=== PATIENT | female | born 1960 | race Caucasian/White ===

== ENCOUNTER 2021-04-15 13:19 | Observation (INO) | payer OTHER, SELFPAY ==
[2021-04-15] VITALS (12 sets, daily range): BP systolic 116–163; BP diastolic 69–91; PULSE 68–86; RESP 16–24; TEMP 37.3–37.7; O2SAT 94–99; BMI 28.6
[2021-04-15 13:40] LABS: Bacteria Urine None Seen; RBC Urine None Seen (0-5/HPF)
[2021-04-15 13:49] LABS: Add Manual Diff / Slide Review NO; Basophils Absolute Auto 0 /uL (0-100); Basophils Percent Auto 0.2 % (0-2); Eosinophils Absolute Auto 0 /uL (0-450); Hematocrit 41.8 % (36-46); Hemoglobin 14.1 g/dL (12.0-16.0); Lymphocytes Absolute Auto 900 /uL (1100-4500); Lymphocytes Percent Auto 5.4 % (25-40); Mean Corpuscular HGB Conc 33.8 % (30-36); Mean Corpuscular Hemoglobin 28.3 PG (26-34); Mean Corpuscular Volume 83.8 fL (80-100); Monocytes Absolute Auto 1100 /uL (0-900); Monocytes Percent Auto 6.8 % (3-14); Neutrophils Absolute Auto 14100 /uL (1500-7000); Neutrophils Percent Auto 87.6 % (50-75); Platelet Count 298 X10^3/uL (150-400); Red Blood Cell Count 4.99 X10^6/uL (4.0-5.2); Red Cell Distribution Width 13.6 % (11.6-14.8); White Blood Cell Count 16.1 X10^3/uL (4.5-11.0)
[2021-04-15 13:57] LABS: Culture Indicated Urine Cult Not Indicated; Mucus Urine 2+ (Negative); Squamous Epithelial Cell Urine 0-1 /HPF (0-5/HPF); WBC Urine 1-5/HPF (0-5/HPF)
--- NOTE | 2021-04-15 14:00 | DI.US.S_ITS ---
PROCEDURE: US ABDOMEN LIMITED INDICATIONS: EPIGASTRIC PAIN TECHNIQUE: Real-time focused scanning was performed of the abdomen, with image documentation. COMPARISON: None. FINDINGS: Liver length of 15.3 centimeter. normal echotexture without focal mass. Gallbladder is distended containing layering sludge and stones including a 1.1 centimeter stone in the gallbladder neck. The gallbladder wall is thickened up to 6-7 millimeter. There is surrounding pericholecystic fluid and the sonographic Espinoza sign is positive. The common bile duct measures 4.9 centimeter in diameter, within normal limits. Visualized portions of the pancreas are unremarkable. IMPRESSION: Findings consistent with acute calculus cholecystitis. Dictated by: Edin Bloom M.D. on 04/15/2021 at 14:23 Approved by: Edin Bloom M.D. on 04/15/2021 at 14:25
[2021-04-15 14:01] LABS: Alanine Aminotransferase 153 IU/L (<35); Albumin 4.6 g/dL (3.5-5.0); Albumin Globulin Ratio 1.2 (1.0-2.8); Alkaline Phosphatase 101 U/L (38-126); Aspartate Aminotransferase 78 IU/L (14-36); BUN Creatinine Ratio 23.5 (6-22); Bilirubin Total 1.2 mg/dL (0.2-1.3); Blood Urea Nitrogen 16 mg/dL (7-17); Calcium 9.5 mg/dL (8.4-10.2); Carbon Dioxide 26 mmol/L (22-32); Chloride 100 mmol/L (98-107); Estimated Glomerular Filt Rate > 60.0 mL/min (>60); Globulin 3.7 g/dL (1.7-4.1); Glucose 124 mg/dL (70-100); HEMOLYSIS < 15 (0-50); Lipase 92 U/L (23-300); Potassium 3.7 mmol/L (3.4-5.1); Sodium 137 mmol/L (137-145); Total Protein 8.3 g/dL (6.3-8.2)
[2021-04-15] MEDS: SODIUM CHLORIDE 0.9% 1,000 ML 1000 ML IV (14:13)
[2021-04-15] MEDS: MAG HYDROX/ALUMINUM/SIMETH SUS 20 ML, LIDOCAINE VISCOUS 2% 15 ML PO (14:13)
[2021-04-15] MEDS: MORPHINE 2 MG/ML INJ 4 MG IV (14:14)
--- NOTE | 2021-04-15 14:17 | ED_ITS ---
HPI - Abdominal Pain <Kait Washington PA-C - Last Filed: 04/15/21 19:19> General Chief Complaint: Abdominal Pain Stated Complaint: Abd pain- upper RT/Mid Time Seen by Provider: 04/15/21 13:23 Source: patient Mode of arrival: Family Vehicle Limitations: no limitations History of Present Illness HPI narrative: 61-year-old female with no significant past medical problems presents to the ED with abdominal pain for 2 days. Patient endorses onset of epigastric pain last night after eating food. Endorses nausea, 2 episodes of vomiting last night. In the ED patient endorses 9/10 pain, nausea. Endorses subjective fever. Denies chest pain, shortness of breath, dysuria, flank pain, lightheadedness, syncope, dizziness. Denies diarrhea, constipation, hematochezia, melena, hematemesis. Endorses prior episodes of similar pain that was not as severe and resolved spontaneously. Patient endorses taking 's omeprazole last night with no relief. Related Data Allergies Allergy/AdvReac Type Severity Reaction Status Date / Time No Known Drug Allergies Allergy Verified 04/15/21 13:36 Review of Systems <Kait Washington PA-C - Last Filed: 04/15/21 19:19> Constitutional Constitutional: Denies chills, Reports fever(s), Denies frequent falls, Denies lethargy and Denies weakness Eyes Eyes: Reports system reviewed and no additional complaints, except as documented ENT Ears, Nose, Mouth, and Throat: Denies dizziness Cardiovascular Cardiovascular: Denies chest pain, Denies irregular heart rhythm, Denies lightheadedness, Denies palpitations, Denies dyspnea, Denies dyspnea on exertion and Denies orthopnea Respiratory Respiratory: Denies cough, Denies dyspnea, Denies dyspnea on exertion and Denies wheezing Gastrointestinal Gastrointestinal: Reports abdominal pain, Denies change in bowel habits, Reports dyspepsia, Denies diarrhea, Reports nausea and Reports vomiting Genitourinary Genitourinary: Denies dysuria Musculoskeletal Musculoskeletal: Denies numbness and Denies tingling Integumentary/Breasts Skin/Breast: Denies pruritus, Denies erythema, Denies rash and Denies wounds Neurologic Neurologic: Denies behavioral changes, Denies confusion, Denies dizziness, Denies frequent falls, Denies numbness, Denies tingling and Denies weakness Psychiatric Psychiatric: Denies behavioral changes and Denies confusion Endocrine Endocrine: Denies palpitations Allergic/Immunologic Allergic/Immunologic: Denies wheezing Patient History <Kait Washington PA-C - Last Filed: 04/15/21 19:19> Social History household members: spouse and children Smoking Status: Never smoker Smoking Status: Never smoker alcohol intake frequency: a few times a month Substance Use Type: does not use Exam <Kait Washington PA-C - Last Filed: 04/15/21 19:19> Initial Vital Signs Initial Vital Signs: Vital Signs Pulse Rate 86 04/15/21 13:30 Respiratory Rate 24 04/15/21 13:30 Blood Pressure 163/91 H 04/15/21 13:30 Pulse Oximetry 98 04/15/21 13:30 Const General: cooperative Eyes General: appearance normal, both eyes and all related structures Eyelids: eyelids normal Conjunctivae: conjunctivae normal Sclera: sclerae normal Pupils: PERRL EOM: EOM intact bilaterally Neck Neck: normal visual inspection, trachea midline, No lymphadenopathy, No midline deformity and No JVD Lymphatic: No lymphedema Chest Chest: normal inspection of the chest Resp Effort & Inspection: normal respiratory effort, able to speak in complete sentences, no respiratory distress and no use of accessory muscles Auscultation: clear to auscultation bilaterally, no rales, no rhonchi and no wheezes Cardio Rate: regular rate Rhythm: regular rhythm Heart Sounds: no click, no gallops, no murmurs and no rubs Pulses: normal peripheral pulses GI Inspection: normal to inspection and non-distended Palpation: soft, no hepatosplenomegaly, No guarding, No pulsatile mass and No tender Auscultation: normal bowel sounds Other: Tenderness to palpation in the epigastric and RUQ regions. No guarding, rebound. No CVA tenderness. General: No CVA tenderness Back/Spine/Pelvis Back: No CVA tenderness Cervical Spine: cervical ROM normal and No pain with cervical ROM Thoracic/Lumbar Spine: thoracic and lumbar spine normal to inspection Skin General: no rashes or lesions noted, No jaundice and No petechiae Neuro General: patient alert, patient oriented x3, gait normal and no focal motor deficits Speech: speech normal Extrem General: full ROM, no clubbing, cyanosis or edema, no pedal edema and no calf tenderness Psych Appearance: well kempt Mental Status: mental status grossly normal Attitude: cooperative Thought Content: normal and suicidality Judgment: judgment good <Olga Lidia Swartz DO - Last Filed: 04/16/21 07:36> Initial Vital Signs Initial Vital Signs: Vital Signs Pulse Rate 86 04/15/21 13:30 Respiratory Rate 24 04/15/21 13:30 Blood Pressure 163/91 H 04/15/21 13:30 Pulse Oximetry 98 04/15/21 13:30 Course <Kait Washington PA-C - Last Filed: 04/15/21 19:19> Course Course Narrative: Ultrasound significant for acute calculous cholecystitis. Patient accepted by surgery, Dr. Morel. discussed plan and findings with patient. Orders Ordered: Acetaminophen (Acetaminophen 325 Mg Tablet) 650 mg PO Q6HR PRN PRN Reason: Fever/Mild Pain (1-3) Hydrocodone Bitart/Acetaminophen (Hydrocodone/Acet 5/325 Tablet) 2 tab PO Q4HR PRN PRN Reason: Pain, Severe (7-10) Famotidine (Famotidine 20 Mg/2 Ml Vial) 20 mg IV NOW [facility] Last Admin: 04/15/21 14:20 Dose: 20 mg Documented by: ANETTE Hydromorphone HCl (Hydromorphone 1 Mg Inj) 1 mg IV Q6H PRN PRN Reason: Pain, Severe (7-10) Last Admin: 04/15/21 17:22 Dose: 1 mg Documented by: ANETTE Lactated Ringer's (Lactated Ringers) 1,000 mls @ 100 mls/hr IV CONT [facility] Last Admin: 04/15/21 17:06 Dose: 100 mls/hr Documented by: ANETTE Piperacillin Sod/Tazobactam (Sod 3.375 gm/ Sodium Chloride) 100 mls @ 25 mls/hr IV Q8H [facility] Last Admin: 04/16/21 04:54 Dose: 25 mls/hr Documented by: Infusion: 04/16/21 01:10 Dose: 0 mls/hr Documented by: Admin: 04/15/21 20:59 Dose: 25 mls/hr Documented by: DUSTIN Ketorolac Tromethamine (Ketorolac 30 Mg/Ml Vial) 30 mg IV Q6HR PRN PRN Reason: Pain, Moderate (4-6) Stop: 04/20/21 16:29 Last Admin: 04/15/21 21:40 Dose: 30 mg Documented by: DUSTIN Naloxone HCl (Naloxone 0.4 Mg/Ml Vial) 0.2 mg IV Q2MIN PRN PRN Reason: Opiate Reversal Discontinued Medications Al Hydrox/Mg Hydrox/Simethicone 20 ml/ Lidocaine HCl 15 ml 0 ml PO NOW ONE Stop: 04/15/21 13:58 Last Admin: 04/15/21 14:13 Dose: 35 ml Documented by: ANETTE Sodium Chloride (Normal Saline 0.9%) 1,000 mls @ 1,000 mls/hr IV BOLUS ONE Stop: 04/15/21 14:56 Last Infusion: 04/15/21 15:15 Dose: 0 mls/hr Documented by: Admin: 04/15/21 14:13 Dose: 1,000 mls/hr Documented by: ANETTE Ondansetron HCl 4 mg/ Sodium (Chloride) 52 mls @ 208 mls/hr IV NOW ONE Stop: 04/15/21 14:00 Last Admin: 04/15/21 19:59 Dose: Not Given Documented by: DUSTIN Piperacillin Sod/Tazobactam (Sod 3.375 gm/ Sodium Chloride) 100 mls @ 25 mls/hr IV Q8H [facility] Last Admin: 04/15/21 19:59 Dose: Not Given Documented by: DUSTIN Piperacillin Sod/Tazobactam (Sod 4.5 gm/ Sodium Chloride) 100 mls @ 200 mls/hr IV NOW ONE Stop: 04/15/21 17:14 Last Infusion: 04/15/21 17:50 Dose: 0 mls/hr Documented by: Admin: 04/15/21 17:04 Dose: 200 mls/hr Documented by: ANETTE Morphine Sulfate (Morphine 2 Mg/Ml Inj) 4 mg IV NOW ONE Stop: 04/15/21 14:00 Last Admin: 04/15/21 14:14 Dose: 4 mg Documented by: ANETTE Ondansetron HCl (Ondansetron 4 Mg/2 Ml Inj) 4 mg IV NOW ONE Stop: 04/15/21 14:22 Last Admin: 04/15/21 14:27 Dose: 4 mg Documented by: ANETTE Ondansetron HCl (Ondansetron 4 Mg/2 Ml Inj) 4 mg IV NOW ONE Stop: 04/15/21 17:14 Last Admin: 04/15/21 17:21 Dose: 4 mg Documented by: ANETTE Vital Signs Vital signs: Vital Signs - 8 hr 04/15/21 13:30 04/15/21 13:33 04/15/21 14:00 Temperature 99.1 F Pulse Rate 86 83 73 Respiratory Rate 24 18 21 Blood Pressure 163/91 H 163/91 H Pulse Oximetry 98 99 97 04/15/21 14:33 04/15/21 15:00 04/15/21 15:30 Temperature Pulse Rate 74 70 68 Respiratory Rate 21 19 16 Blood Pressure 159/77 H Pulse Oximetry 98 98 98 04/15/21 15:40 04/15/21 16:00 04/15/21 16:26 Temperature Pulse Rate 73 71 Respiratory Rate 21 20 Blood Pressure 159/77 H 157/74 H Pulse Oximetry 98 98 98 04/15/21 16:30 Temperature Pulse Rate 72 Respiratory Rate 19 Blood Pressure 147/74 H Pulse Oximetry 98 <Olga Lidia Swartz, - Last Filed: 04/16/21 07:36> Orders Ordered: Acetaminophen (Acetaminophen 325 Mg Tablet) 650 mg PO Q6HR PRN PRN Reason: Fever/Mild Pain (1-3) Hydrocodone Bitart/Acetaminophen (Hydrocodone/Acet 5/325 Tablet) 2 tab PO Q4HR PRN PRN Reason: Pain, Severe (7-10) Famotidine (Famotidine 20 Mg/2 Ml Vial) 20 mg IV NOW [facility] Last Admin: 04/15/21 14:20 Dose: 20 mg Documented by: ANETTE Hydromorphone HCl (Hydromorphone 1 Mg Inj) 1 mg IV Q6H PRN PRN Reason: Pain, Severe (7-10) Last Admin: 04/15/21 17:22 Dose: 1 mg Documented by: ANETTE Lactated Ringer's (Lactated Ringers) 1,000 mls @ 100 mls/hr IV CONT [facility] Last Admin: 04/15/21 17:06 Dose: 100 mls/hr Documented by: ANETTE Piperacillin Sod/Tazobactam (Sod 3.375 gm/ Sodium Chloride) 100 mls @ 25 mls/hr IV Q8H [facility] Last Admin: 04/16/21 04:54 Dose: 25 mls/hr Documented by: Infusion: 04/16/21 01:10 Dose: 0 mls/hr Documented by: Admin: 04/15/21 20:59 Dose: 25 mls/hr Documented by: DUSTIN Ketorolac Tromethamine (Ketorolac 30 Mg/Ml Vial) 30 mg IV Q6HR PRN PRN Reason: Pain, Moderate (4-6) Stop: 04/20/21 16:29 Last Admin: 04/15/21 21:40 Dose: 30 mg Documented by: DUSTIN Naloxone HCl (Naloxone 0.4 Mg/Ml Vial) 0.2 mg IV Q2MIN PRN PRN Reason: Opiate Reversal Discontinued Medications Al Hydrox/Mg Hydrox/Simethicone 20 ml/ Lidocaine HCl 15 ml 0 ml PO NOW ONE Stop: 04/15/21 13:58 Last Admin: 04/15/21 14:13 Dose: 35 ml Documented by: ANETTE Sodium Chloride (Normal Saline 0.9%) 1,000 mls @ 1,000 mls/hr IV BOLUS ONE Stop: 04/15/21 14:56 Last Infusion: 04/15/21 15:15 Dose: 0 mls/hr Documented by: Admin: 04/15/21 14:13 Dose: 1,000 mls/hr Documented by: ANETTE Ondansetron HCl 4 mg/ Sodium (Chloride) 52 mls @ 208 mls/hr IV NOW ONE Stop: 04/15/21 14:00 Last Admin: 04/15/21 19:59 Dose: Not Given Documented by: DUSTIN Piperacillin Sod/Tazobactam (Sod 3.375 gm/ Sodium Chloride) 100 mls @ 25 mls/hr IV Q8H [facility] Last Admin: 04/15/21 19:59 Dose: Not Given Documented by: DUSTIN Piperacillin Sod/Tazobactam (Sod 4.5 gm/ Sodium Chloride) 100 mls @ 200 mls/hr IV NOW ONE Stop: 04/15/21 17:14 Last Infusion: 04/15/21 17:50 Dose: 0 mls/hr Documented by: Admin: 04/15/21 17:04 Dose: 200 mls/hr Documented by: ANETTE Morphine Sulfate (Morphine 2 Mg/Ml Inj) 4 mg IV NOW ONE Stop: 04/15/21 14:00 Last Admin: 04/15/21 14:14 Dose: 4 mg Documented by: ANETTE Ondansetron HCl (Ondansetron 4 Mg/2 Ml Inj) 4 mg IV NOW ONE Stop: 04/15/21 14:22 Last Admin: 04/15/21 14:27 Dose: 4 mg Documented by: ANETTE Ondansetron HCl (Ondansetron 4 Mg/2 Ml Inj) 4 mg IV NOW ONE Stop: 04/15/21 17:14 Last Admin: 04/15/21 17:21 Dose: 4 mg Documented by: ANETTE Vital Signs Vital signs: Vital Signs - 8 hr 04/15/21 13:30 04/15/21 13:33 04/15/21 14:00 Temperature 99.1 F Pulse Rate 86 83 73 Respiratory Rate 24 18 21 Blood Pressure 163/91 H 163/91 H Pulse Oximetry 98 99 97 04/15/21 14:33 04/15/21 15:00 04/15/21 15:30 Temperature Pulse Rate 74 70 68 Respiratory Rate 21 19 16 Blood Pressure 159/77 H Pulse Oximetry 98 98 98 04/15/21 15:40 04/15/21 16:00 04/15/21 16:26 Temperature Pulse Rate 73 71 Respiratory Rate 21 20 Blood Pressure 159/77 H 157/74 H Pulse Oximetry 98 98 98 04/15/21 16:30 Temperature Pulse Rate 72 Respiratory Rate 19 Blood Pressure 147/74 H Pulse Oximetry 98 MDM - Abdominal Pain <Kait Washington PA-C - Last Filed: 04/15/21 19:19> Medical Records Attestation: I reviewed the patient's medical records. Lab Data Lab results narrative: WBC elevated with neutrophil predominance. Result diagrams: 04/15/21 13:34 04/15/21 13:34 Labs: Lab Results 04/15/21 04/15/21 04/15/21 Range/Units 13:34 13:34 13:34 WBC 16.1 H (4.5-11.0) X10^3/uL RBC 4.99 (4.0-5.2) X10^6/uL Hgb 14.1 (12.0-16.0) g/dL Hct 41.8 (36-46) % MCV 83.8 (80-100) fL MCH 28.3 (26-34) PG MCHC 33.8 (30-36) % RDW 13.6 (11.6-14.8) % Plt Count 298 (150-400) X10^3/uL Neut % (Auto) 87.6 H (50-75) % Lymph % (Auto) 5.4 L (25-40) % [place] % (Auto) 6.8 (3-14) % Eos % (Auto) 0.0 L (2-4) % Baso % (Auto) 0.2 (0-2) % Neut # (Auto) 58398 H (6501-7582) /uL Lymph # (Auto) 900 L (0048-5442) /uL [place] # (Auto) 1100 H (0-900) /uL Eos # (Auto) 0 (0-450) /uL Baso # (Auto) 0 (0-100) /uL Sodium 137 (137-145) mmol/L Potassium 3.7 (3.4-5.1) mmol/L Chloride 100 (98-107) mmol/L Carbon Dioxide 26 (22-32) mmol/L BUN 16 (7-17) mg/dL Creatinine 0.68 (0.52-1.04) mg/dL Estimated GFR > 60.0 (>60) mL/min BUN/Creatinine Ratio 23.5 H (6-22) Glucose 124 H (70-100) mg/dL Calcium 9.5 (8.4-10.2) mg/dL Total Bilirubin 1.2 (0.2-1.3) mg/dL AST 78 H (14-36) IU/L ALT 153 H (<35) IU/L Alkaline Phosphatase 101 (38-126) U/L Total Creatine Kinase 89 (30-135) U/L CK-MB (CK-2) TNP CK-MB (CK-2) Rel Index TNP Troponin I < 0.012 (0.01-0.034) ng/mL Total Protein 8.3 H (6.3-8.2) g/dL Albumin 4.6 (3.5-5.0) g/dL Globulin 3.7 (1.7-4.1) g/dL Albumin/Globulin Ratio 1.2 (1.0-2.8) Lipase 92 (23-300) U/L Urine RBC (0-5/HPF) Urine WBC (0-5/HPF) Ur Squamous Epith Cells (0-5/HPF) Urine Bacteria (None) Urine Mucus (Negative) Ur Culture Indicated? 04/15/21 Range/Units 13:35 WBC (4.5-11.0) X10^3/uL RBC (4.0-5.2) X10^6/uL Hgb (12.0-16.0) g/dL Hct (36-46) % MCV (80-100) fL MCH (26-34) PG MCHC (30-36) % RDW (11.6-14.8) % Plt Count (150-400) X10^3/uL Neut % (Auto) (50-75) % Lymph % (Auto) (25-40) % [place] % (Auto) (3-14) % Eos % (Auto) (2-4) % Baso % (Auto) (0-2) % Neut # (Auto) (5459-6661) /uL Lymph # (Auto) (7591-2671) /uL [place] # (Auto) (0-900) /uL Eos # (Auto) (0-450) /uL Baso # (Auto) (0-100) /uL Sodium (137-145) mmol/L Potassium (3.4-5.1) mmol/L Chloride (98-107) mmol/L Carbon Dioxide (22-32) mmol/L BUN (7-17) mg/dL Creatinine (0.52-1.04) mg/dL Estimated GFR (>60) mL/min BUN/Creatinine Ratio (6-22) Glucose (70-100) mg/dL Calcium (8.4-10.2) mg/dL Total Bilirubin (0.2-1.3) mg/dL AST (14-36) IU/L ALT (<35) IU/L Alkaline Phosphatase (38-126) U/L Total Creatine Kinase (30-135) U/L CK-MB (CK-2) CK-MB (CK-2) Rel Index Troponin I (0.01-0.034) ng/mL Total Protein (6.3-8.2) g/dL Albumin (3.5-5.0) g/dL Globulin (1.7-4.1) g/dL Albumin/Globulin Ratio (1.0-2.8) Lipase (23-300) U/L Urine RBC None seen (0-5/HPF) Urine WBC 1-5/hpf (0-5/HPF) Ur Squamous Epith Cells 0-1 /hpf (0-5/HPF) Urine Bacteria None seen (None) Urine Mucus 2+ H (Negative) Ur Culture Indicated? Cult not indicated Point of care testing: Urine Dip Bedside Urine Glucose Negative Bedside Urine Bilirubin - Negative Bedside Urine Ketone - Negative Urine Specific [place] 1.030 Bedside Urine Occult Blood - Negative Bedside Urine pH 6 Bedside Urine Protein - Negative Bedside Urine Urobilinogen - Negative Bedside Urine Nitrite - Negative Bedside Urine Leukocytes - Negative Esterase Imaging Data Chest x-ray: Attestation: I personally reviewed and interpreted this imaging study as follows: My Impression: No acute cardiopulmonary process. Radiologist's Impression: PROCEDURE: XR CHEST 2V INDICATIONS: Epigastric, RUQ pain TECHNIQUE: 2 views of the chest were acquired. COMPARISON: None. FINDINGS: Surgical changes and devices: None. Lungs and pleura: Lungs are clear. No pleural effusions or pneumothorax. Mediastinum: Mediastinal contours are normal. Heart size is normal. Bones and chest wall: No suspicious bony abnormalities. Soft tissues appear unremarkable. IMPRESSION: No acute cardiopulmonary abnormality. Dictated by: Edin Bloom M.D. on 04/15/2021 at 14:04 Approved by: Edin Bloom M.D. on 04/15/2021 at 14:05 US - abdomen: Radiologist's Impression: PROCEDURE: US ABDOMEN LIMITED INDICATIONS: EPIGASTRIC PAIN TECHNIQUE: Real-time focused scanning was performed of the abdomen, with image documentation. COMPARISON: None. FINDINGS: Liver length of 15.3 centimeter. normal echotexture without focal mass. Gallbladder is distended containing layering sludge and stones including a 1.1 centimeter stone in the gallbladder neck. The gallbladder wall is thickened up to 6-7 millimeter. There is surrounding pericholecystic fluid and the sonographic Espinoza sign is positive. The common bile duct measures 4.9 centimeter in diameter, within normal limits. Visualized portions of the pancreas are unremarkable. IMPRESSION: Findings consistent with acute calculus cholecystitis. Dictated by: Edin Bloom M.D. on 04/15/2021 at 14:23 Approved by: Edin Bloom M.D. on 04/15/2021 at 14:25 ECG Data Interpretation: NSR, no axis deviation, non specific ST-T changes. Regular rate and rhythm. MDM Narrative Medical decision making narrative: 61-year-old female with no significant past medical problems presents to the ED with abdominal pain for 2 days. Patient endorses onset of epigastric pain last night after eating food. Concern for GERD versus gastritis versus pancreatitis versus PUD versus cholecystitis versus biliary colic versus coli to cholelithiasis versus cholangitis versus pneumonia. Will order labs, lipase, EKG, chest x-ray, ultrasound right upper quadrant. Will give IV hydration, morphine, Zofran, GI cocktail, Pepcid. Will consider CT abdomen pelvis is negative ultrasound. Will reassess. Dispo dependent results. <Olga Lidia Swartz DO - Last Filed: 04/16/21 07:36> Lab Data Labs: Lab Results 04/15/21 04/15/21 04/15/21 Range/Units 13:34 13:34 13:34 WBC 16.1 H (4.5-11.0) X10^3/uL RBC 4.99 (4.0-5.2) X10^6/uL Hgb 14.1 (12.0-16.0) g/dL Hct 41.8 (36-46) % MCV 83.8 (80-100) fL MCH 28.3 (26-34) PG MCHC 33.8 (30-36) % RDW 13.6 (11.6-14.8) % Plt Count 298 (150-400) X10^3/uL Neut % (Auto) 87.6 H (50-75) % Lymph % (Auto) 5.4 L (25-40) % [place] % (Auto) 6.8 (3-14) % Eos % (Auto) 0.0 L (2-4) % Baso % (Auto) 0.2 (0-2) % Neut # (Auto) 12346 H (9594-1459) /uL Lymph # (Auto) 900 L (4430-0988) /uL [place] # (Auto) 1100 H (0-900) /uL Eos # (Auto) 0 (0-450) /uL Baso # (Auto) 0 (0-100) /uL Sodium 137 (137-145) mmol/L Potassium 3.7 (3.4-5.1) mmol/L Chloride 100 (98-107) mmol/L Carbon Dioxide 26 (22-32) mmol/L BUN 16 (7-17) mg/dL Creatinine 0.68 (0.52-1.04) mg/dL Estimated GFR > 60.0 (>60) mL/min BUN/Creatinine Ratio 23.5 H (6-22) Glucose 124 H (70-100) mg/dL Calcium 9.5 (8.4-10.2) mg/dL Total Bilirubin 1.2 (0.2-1.3) mg/dL AST 78 H (14-36) IU/L ALT 153 H (<35) IU/L Alkaline Phosphatase 101 (38-126) U/L Total Creatine Kinase 89 (30-135) U/L CK-MB (CK-2) TNP CK-MB (CK-2) Rel Index TNP Troponin I < 0.012 (0.01-0.034) ng/mL Total Protein 8.3 H (6.3-8.2) g/dL Albumin 4.6 (3.5-5.0) g/dL Globulin 3.7 (1.7-4.1) g/dL Albumin/Globulin Ratio 1.2 (1.0-2.8) Lipase 92 (23-300) U/L Urine RBC (0-5/HPF) Urine WBC (0-5/HPF) Ur Squamous Epith Cells (0-5/HPF) Urine Bacteria (None) Urine Mucus (Negative) Ur Culture Indicated? 04/15/21 Range/Units 13:35 WBC (4.5-11.0) X10^3/uL RBC (4.0-5.2) X10^6/uL Hgb (12.0-16.0) g/dL Hct (36-46) % MCV (80-100) fL MCH (26-34) PG MCHC (30-36) % RDW (11.6-14.8) % Plt Count (150-400) X10^3/uL Neut % (Auto) (50-75) % Lymph % (Auto) (25-40) % [place] % (Auto) (3-14) % Eos % (Auto) (2-4) % Baso % (Auto) (0-2) % Neut # (Auto) (5158-6762) /uL Lymph # (Auto) (1994-3441) /uL [place] # (Auto) (0-900) /uL Eos # (Auto) (0-450) /uL Baso # (Auto) (0-100) /uL Sodium (137-145) mmol/L Potassium (3.4-5.1) mmol/L Chloride (98-107) mmol/L Carbon Dioxide (22-32) mmol/L BUN (7-17) mg/dL Creatinine (0.52-1.04) mg/dL Estimated GFR (>60) mL/min BUN/Creatinine Ratio (6-22) Glucose (70-100) mg/dL Calcium (8.4-10.2) mg/dL Total Bilirubin (0.2-1.3) mg/dL AST (14-36) IU/L ALT (<35) IU/L Alkaline Phosphatase (38-126) U/L Total Creatine Kinase (30-135) U/L CK-MB (CK-2) CK-MB (CK-2) Rel Index Troponin I (0.01-0.034) ng/mL Total Protein (6.3-8.2) g/dL Albumin (3.5-5.0) g/dL Globulin (1.7-4.1) g/dL Albumin/Globulin Ratio (1.0-2.8) Lipase (23-300) U/L Urine RBC None seen (0-5/HPF) Urine WBC 1-5/hpf (0-5/HPF) Ur Squamous Epith Cells 0-1 /hpf (0-5/HPF) Urine Bacteria None seen (None) Urine Mucus 2+ H (Negative) Ur Culture Indicated? Cult not indicated Point of care testing: Urine Dip Bedside Urine Glucose Negative Bedside Urine Bilirubin - Negative Bedside Urine Ketone - Negative Urine Specific [place] 1.030 Bedside Urine Occult Blood - Negative Bedside Urine pH 6 Bedside Urine Protein - Negative Bedside Urine Urobilinogen - Negative Bedside Urine Nitrite - Negative Bedside Urine Leukocytes - Negative Esterase MDM Narrative Medical decision making narrative: 61-year-old female with no significant past medical problems presents to the ED with abdominal pain for 2 days. Patient endorses onset of epigastric pain last night after eating food. Concern for GERD versus gastritis versus pancreatitis versus PUD versus cholecystitis versus biliary colic versus coli to cholelithiasis versus cholangitis versus pneumonia. Will order labs, lipase, EKG, chest x-ray, ultrasound right upper quadrant. Will give IV hydration, morphine, Zofran, GI cocktail, Pepcid. Will consider CT abdomen pelvis is negative ultrasound. Will reassess. Dispo dependent results. The patient admitted to Dr. Morel for cholecystitis Discharge Plan Departure Patient Disposition: Admitted to Surgery Clinical Impression: Cholecystitis, acute with cholelithiasis Qualifiers: Biliary obstruction: with biliary obstruction Qualified Code(s): K80.01 - Calculus of gallbladder with acute cholecystitis with obstruction Admit Date/Time: 04/15/21 17:38 Admit Provider: Renetta Morel
[2021-04-15] MEDS: FAMOTIDINE 20 MG/2 ML VIAL IV (14:20)
[2021-04-15] MEDS: ONDANSETRON 4 MG/2 ML INJ IV ×2 (14:27→17:21)
[2021-04-15 15:44] LABS: Creatine Kinase 89 U/L (30-135)
[2021-04-15 15:57] LABS: Troponin I < 0.012 ng/mL (0.01-0.034)
[2021-04-15] MEDS: PIPERACILLIN/TAZO 4.5 GM in SODIUM CHLORIDE 0.9% 100 ML 200 ML IV (17:04)
[2021-04-15] MEDS: LACTATED RINGERS 1,000 ML 100 ML IV (17:06)
[2021-04-15] MEDS: HYDROMORPHONE 1 MG INJ IV (17:22)
[2021-04-15 18:38] LABS: COVID19 - ADMIT (NP swab/PCR) Negative (Negative)
--- NOTE | 2021-04-15 20:03 | PC.ADMIT ---
1160 [facility] Admission Note: Patient arrived to floor at 18:10 via stretcher, spouse present. Alert and oriented x 4, denies pain or nausea. SCD's on, patient shown how to use call light, brakes on bed locked. The patient,Sunni Copeland,61 y/o, was given written information regarding hospital policies, unit procedures and contact persons. Patient's smoking status: Never smoker. Vital Signs - 8 hr 04/15/21 13:30 04/15/21 13:33 04/15/21 14:00 Temperature 99.1 F Pulse Rate 86 83 73 Respiratory Rate 24 18 21 Blood Pressure 163/91 H 163/91 H Pulse Oximetry 98 99 97 04/15/21 14:33 04/15/21 15:00 04/15/21 15:30 Temperature Pulse Rate 74 70 68 Respiratory Rate 21 19 16 Blood Pressure 159/77 H Pulse Oximetry 98 98 98 04/15/21 15:40 04/15/21 16:00 04/15/21 16:26 Temperature Pulse Rate 73 71 Respiratory Rate 21 20 Blood Pressure 159/77 H 157/74 H Pulse Oximetry 98 98 98 04/15/21 16:30 04/15/21 18:05 Temperature 99.8 F H Pulse Rate 72 82 Respiratory Rate 19 17 Blood Pressure 147/74 H 137/81 Pulse Oximetry 98 95
[2021-04-15] MEDS: PIPERACILLIN/TAZO 3.375 GM in SODIUM CHLORIDE 0.9% 100 ML 25 ML IV (20:59)
[2021-04-15] MEDS: KETOROLAC 30 MG/ML VIAL IV (21:40)
[2021-04-16] VITALS (20 sets, daily range): BP systolic 100–132; BP diastolic 51–77; PULSE 71–91; RESP 12–23; TEMP 35.9–37.9; O2SAT 92–98; BMI 28.6
--- NOTE | 2021-04-16 | PATH_ITS ---
[facility] Accession Number: [id number] . 01 Material submitted: . gallbladder - GALLBLADDER . 02 Diagnosis: Gallbladder, Cholecystectomy: Acute cholecystitis with mucosal erosions. No choleliths identified. Negative for dysplasia and malignancy. V 04/18/2021 1049 Local . 02 Electronically signed: . Albertina Amador MD, Pathologist NPI- [id number] . 01 Gross description: . The specimen is received in formalin, labeled gallbladder and consists of a fragmented gallbladder measuring 8.5 x 4.5 x 3.5 cm in aggregate with a disrupted cystic duct measuring 0.5 cm in diameter. The serosa is mcghee-pink to red-brown and hemorrhagic with fibrinous adhesions. Opening reveals a mcghee-green trabeculated mucosa. The wall thickness measures 0.5 cm. No choleliths are identified. Solutions Manager sections are submitted, to include the area of the cystic duct (blue), in cassette A1. ([id number]) /V 04/17/2021 1116 Local . 02 Pathologist provided ICD-10: K81.0 . 02 CPT . 986737 Performed at: 01 [facility] Cyt[facility] [address], [place], [place] [id number] MD Jad Forrester MD Phone: [phone] Performed at: 02 [facility] [address] [place], [place] [id number] MD Albertina Amador MD Phone: [phone]
--- NOTE | 2021-04-16 02:53 | PM.HP.1 ---
History of Present Illness History of Present Illness Chief complaint: Abd pain- upper RT/Mid Narrative: Abdominal pain RUQ for 2 days with nausea and ememsis. Pain is persistent, worse with palpation and occasionally sharp. +anorexia, + previous similar symptoms that resolved spontaneously. ED w/o shows elevate WBC, mild elevated transaminase, dehydration. US confirms acute emily with stone stuck in neck of GB. Patient History Family & Social History Social History: household members spouse,children Prior Living Arrangements House Safety & Behavioral: Feels Safe in Current Yes Environment Been Physically Hurt or No Threatened By a Person Suicidal Ideation Description None Suicide Plan Description No Plan Tobacco & Substance use: Smoking Status Never smoker alcohol intake frequency holiday/special occasion Substance Use Type does not use Meds Home Medications and Allergies Home Medications Medication Instructions Recorded Confirmed Type No Known Home Medications 04/16/21 04/16/21 History Allergies Allergy/AdvReac Type Severity Reaction Status Date / Time No Known Drug Allergies Allergy Verified 04/15/21 13:36 Review of Systems Review of Systems ROS: Yes All systems reviewed with the patient and are negative except as otherwise documented Exam Vital Signs (past 8 hours): - 04/15/21 23:25 Temperature 99.3 F Pulse Rate 81 Respiratory Rate 18 Blood Pressure 116/69 Pulse Oximetry 94 Oxygen Delivery Method Room Air Oxygen Flow Rate 0 Const General: cooperative and healthy appearing Orientation: alert, awake and oriented x3 [facility] Head: normocephalic and atraumatic Ears: hearing grossly normal bilaterally Eyes Sclera: sclerae normal Neck Neck: full ROM and trachea midline Chest Chest: normal inspection of the chest Resp Effort & Inspection: normal respiratory effort and able to speak in complete sentences Cardio Rate: regular rate Rhythm: regular rhythm GI Palpation: soft and tender (RUQ tender to palpation) Skin Lesions: no lesions Rashes: no rashes Neuro General: patient alert, patient awake and patient oriented x3 Extrem General: normal to inspection and full ROM Psych Mental Status: mental status grossly normal Objective Labs Result Diagrams: 04/15/21 13:34 04/15/21 13:34 Labs: Laboratory Results - last 24 hr 04/15/21 04/15/21 04/15/21 13:34 13:34 13:34 WBC 16.1 H RBC 4.99 Hgb 14.1 Hct 41.8 MCV 83.8 MCH 28.3 MCHC 33.8 RDW 13.6 Plt Count 298 Neut % (Auto) 87.6 H Lymph % (Auto) 5.4 L [place] % (Auto) 6.8 Eos % (Auto) 0.0 L Baso % (Auto) 0.2 Neut # (Auto) 61243 H Lymph # (Auto) 900 L [place] # (Auto) 1100 H Eos # (Auto) 0 Baso # (Auto) 0 Sodium 137 Potassium 3.7 Chloride 100 Carbon Dioxide 26 BUN 16 Creatinine 0.68 Estimated GFR > 60.0 BUN/Creatinine Ratio 23.5 H Glucose 124 H Calcium 9.5 Total Bilirubin 1.2 AST 78 H ALT 153 H Alkaline Phosphatase 101 Total Creatine Kinase 89 CK-MB (CK-2) TNP CK-MB (CK-2) Rel Index TNP Troponin I < 0.012 Total Protein 8.3 H Albumin 4.6 Globulin 3.7 Albumin/Globulin Ratio 1.2 Lipase 92 Urine RBC Urine WBC Ur Squamous Epith Cells Urine Bacteria Urine Mucus Ur Culture Indicated? SARS-CoV-2 (PCR) 04/15/21 04/15/21 13:35 17:41 WBC RBC Hgb Hct MCV MCH MCHC RDW Plt Count Neut % (Auto) Lymph % (Auto) [place] % (Auto) Eos % (Auto) Baso % (Auto) Neut # (Auto) Lymph # (Auto) [place] # (Auto) Eos # (Auto) Baso # (Auto) Sodium Potassium Chloride Carbon Dioxide BUN Creatinine Estimated GFR BUN/Creatinine Ratio Glucose Calcium Total Bilirubin AST ALT Alkaline Phosphatase Total Creatine Kinase CK-MB (CK-2) CK-MB (CK-2) Rel Index Troponin I Total Protein Albumin Globulin Albumin/Globulin Ratio Lipase Urine RBC None seen Urine WBC 1-5/hpf Ur Squamous Epith Cells 0-1 /hpf Urine Bacteria None seen Urine Mucus 2+ H Ur Culture Indicated? Cult not indicated SARS-CoV-2 (PCR) Negative Assessment & Plan Assessment & Plan narrative: acute cholecystitis. Needs laparoscopic cholecystectomy. Risk and benefits discussed. COVID-19 COVID-19 status: Negative Time Spent With Patient Time with patient: 25 - 35 minutes Quality VTE Deep Vein Thrombosis/Pulmonary Embolism Present on Admission: No
[2021-04-16] MEDS: PIPERACILLIN/TAZO 3.375 GM in SODIUM CHLORIDE 0.9% 100 ML 25 ML IV ×3 (04:54→21:44)
--- NOTE | 2021-04-16 09:17 | CM.DANOTE ---
Patient is a 61 yo female who was admitted on 04/15/21 for ABD Pain. Pt has [employer] for insurance and her PCP is at the [facility]. EMR was reviewed. Per Surgeon, pt will likely need surgical intervention and trying to determine if pt can be on the schedule for surgery today. SW met bedside with pt and spouse and explained role and pt confirms that she lives in [place] with her and is active, independent, and drives at baseline and does not use DME for ambulation. Pt's spouse is currently working but his employer confirmed that he can get time off to assist spouse at d/c when medically stable to discharge. Pt does not anticipate any needs and preference is home with spouse when stable. Plan: SW to follow after surgical intervention to confirm safe plan of home with spouse when medically stable and any further identified needs. ARCADIO Fu Discharge Planning/Care Management CM Discharge Assessment Start: 04/16/21 09:14 Freq: Status: Active Protocol: Document 04/16/21 09:15 BF (Rec: 04/16/21 09:17 BF [id number]) Discharge Planning Assessment Assigned Personal Care Aid ARCADIO Lopez DPOA/Assigned Designee Name informally spouse Mike Contact Information [phone] Advance Directives? No Advance Directives on File No History Provided By Patient,Significant Other, Medical Record Has Patient been admitted in last 30 No days? Prior Living Arrangements House Household Members spouse,children Type of transporation used prior to Drives own vehicle admit Independent with ADL's Yes Is patient alert and oriented? Yes Caregiver for Another No Barriers to Discharge No Discharge Plan Home Transportation Arrangement Spouse bedside and can provide transport at d/c Referrals Initiated None needed Whiteboard Updated in Patient Room with Yes name and ext. # of Personal Care Aid Review Status In Process Please Provide Date Initial DC 04/16/21 Assessment Was Performed Next Review Type Continued Stay Review
[2021-04-16] MEDS: LACTATED RINGERS 1,000 ML 100 ML IV ×3 (10:58→17:34)
[2021-04-16] MEDS: ONDANSETRON 4 MG/2 ML INJ IV ×2 (14:13→18:43)
[2021-04-16] MEDS: SODIUM CHLORIDE 0.9% 1,000 ML 100 ML IV ×2 (14:18→20:57)
--- NOTE | 2021-04-16 16:32 | SUR.OPER ---
Supine on padded OR bed, head on pillow, safety belt at thigh, left arm padded and tucked at side. Right arm secured on padded arm board <90 degrees abduction. Legs uncrossed. Padded footboard in place. Tape over blanket to secure lower legs.
[2021-04-16] MEDS: BUPIVACAINE 0.25% (PF) VIAL 30 ML INJ (17:00)
[2021-04-16] MEDS: HYDROMORPHONE 2 MG INJ IV (18:46)
[2021-04-16] MEDS: fentaNYL 100 MCG/2 ML INJ IV (18:56)
--- NOTE | 2021-04-16 18:59 | P.OP_ITS ---
Operative Date/Time/Diagnoses Date of procedure: 04/16/21 Time of procedure: 18:59 Pre-op diagnosis: Acute cholecystitis Post-op diagnosis: same Procedure & Clinicians Procedure: Laparoscopic cholecystectomy Same procedure as scheduled: Yes Indications: Acute cholecystitis history of biliary colic Surgeon: Lester Penny Click Yes if Unassisted: Yes Anesthesia Type: General Operative Notes Findings: acute on chronic cholecystitis. Inmobile stone impacted within the neck of the gallbladder. Specimen(s): other (Gallbladder) Estimated Blood Loss (mL): 400 Procedure in detail: Patient was brought to the operating room placed supine on the table. Bilateral lower extremity compression devices were applied. She received Zosyn prior to skin incision. General anesthesia was induced she was intubated with an endotracheal tube. She was prepped and draped in sterile fashion. Time-out was performed. The umbilicus was infiltrated with local anesthetic an infraumbilical incision was made and the abdomen was entered atraumatically. Pneumoperitoneum was established. Working ports were placed in the right upper quadrant two 5 mm ports and a 10 mm port high in the epigastrium. General inspection of the abdomen was made no injury upon entry was observed. There were dense adhesions between the omentum and the gallbladder that were taken down. The gallbladder was notable for hydrops and acute on chronic cholecystitis. It was percutaneously drained to facilitate its mobilization. Despite decompressing it remained inmobile because of a large impacted stone within the neck of the gallbladder. Despite multiple attempts to dislodge the stone that it could not be performed. Therefore I transected the gallbladder in its midportion and the stone was extracted from the neck the gallbladder through the lumen. The infundibulum was now more mobile then it was retracted lateral and superior, the hepatocystic triangle was skeletonized of its fibrous tissue with blunt dissection. The triangle was meticulously skeletonized until two tubular structures were seen directly entering the gallb ladder. With the liver in the background the critical view of safety established, the artery and cystic duct were then clipped twice on the stay side once on the specimen side using the weck 10 mm hemoclip and then sharply divided. In doing so a branch of the cystic artery hemorraged. Ultimately The branch was controlled and clipped under direct visualization. The gallbladder was then excised from the liver with electrocauter. The gallbladder fossa was very friable and in total approximately 400 ml of blood was lost. Hemostasis was achieved. The abdomen was copiously irrigated with multiple liters of saline. This was a difficult case. A 19F Stephane was placed into the right upper quadrant.. The fascia the umbilicus was closed with Vicryl suture skin closed with Monocryl followed by Dermabond. Transfered to recovery in stable condition. Complications: none Post-operative Disposition: Acute Care
--- NOTE | 2021-04-16 19:52 | SUR.PHASEI ---
Pt transferred to [facility] in bed with this RN. SBAr report and handoff given at bedside to Neida CHING. Pt resting comfortable, pain 5/10, dressings clean, dry and intact. at bedside. Bed in low position, call light in reach.
--- NOTE | 2021-04-16 19:56 | PC.NURSE ---
Addendum entered by Neida Monique R.N. 04/16/21 23:55: patient reports increased pain not relieved w/ prn norco (two tabs) given at HS. NOC RN noted that patient's orders have two IVF ordererd. call to surgeon Hemalatha to request IV pain med, anti-nausea med, and clarify which IVF he wants. orders received: ba lau NS at 50cc/hour. CARRIE Zepeda RN will give meds. patient notified. Original Note: returned from PACU at 1745: bedside report w/ Myrtle. gallbladder removed, reportedly alot of inflammation around area per surgeon and RN. patient on 2lpm via NC, satting high 90s. patient states 5/10 pain to ABD, gauze dressing is clean and dry. 3 lap sites CDI. cale drain patent, reinforced tubing at dressing site. SCD's applied. ok'd for general diet, patient ok w/ starting out w/ sips of ice water. fresh ice pack placed. patient reports pain is tolerable. remains at bedside. call light w/in reach.
[2021-04-16] MEDS: HYDROCODONE/ACET 5/325 TABLET 2 TAB PO (20:56)
[2021-04-16] MEDS: SODIUM CHLORIDE 0.9% FLUSH 10 ML IV (20:59)
[2021-04-17] MEDS: HYDROMORPHONE 0.5 MG INJ IV ×2 (00:02→10:39)
--- NOTE | 2021-04-17 01:03 | PC.NURSE ---
Patient is alert and oriented. Breath sounds CTA with RA sat of 95%. HRR. Denies nausea. BT present but denies flatus as yet. Has not voided since return from surgery. Is able to move herself in bed. Gait not yet assessed. Bandaid dressings to upper right abdomen x 3 are CDI. JUDY compressed and intact with dressing CDI. Complained of 9/10 sharp abdominal pain with movement at start of shift and, after contacting MD, was medicated with IV Dilaudid and now states pain is down to 3/10; using ice packs for comfort. Wearing bilateral calf SCD's. Fall risk score is low.
[2021-04-17] MEDS: HYDROCODONE/ACET 5/325 TABLET 2 TAB PO ×2 (04:10→09:21)
[2021-04-17 04:18] VITALS: BP 110/64; PULSE 63; RESP 18; TEMP 36.6; O2SAT 93
[2021-04-17] MEDS: ONDANSETRON 4 MG/2 ML INJ IV ×2 (04:35→09:21)
[2021-04-17] MEDS: PIPERACILLIN/TAZO 3.375 GM in SODIUM CHLORIDE 0.9% 100 ML 25 ML IV (05:07)
[2021-04-17 06:11] LABS: Add Manual Diff / Slide Review NO; Basophils Absolute Auto 0 /uL (0-100); Basophils Percent Auto 0.1 % (0-2); Eosinophils Absolute Auto 0 /uL (0-450); Hematocrit 32.1 % (36-46); Hemoglobin 10.8 g/dL (12.0-16.0); Lymphocytes Absolute Auto 400 /uL (1100-4500); Lymphocytes Percent Auto 3.1 % (25-40); Mean Corpuscular HGB Conc 33.5 % (30-36); Mean Corpuscular Hemoglobin 28.6 PG (26-34); Mean Corpuscular Volume 85.2 fL (80-100); Monocytes Absolute Auto 300 /uL (0-900); Monocytes Percent Auto 2.5 % (3-14); Neutrophils Absolute Auto 12000 /uL (1500-7000); Neutrophils Percent Auto 94.3 % (50-75); Platelet Count 209 X10^3/uL (150-400); Red Blood Cell Count 3.77 X10^6/uL (4.0-5.2); White Blood Cell Count 12.8 X10^3/uL (4.5-11.0)
[2021-04-17 06:17] LABS: Alanine Aminotransferase 238 IU/L (<35); Albumin 3.4 g/dL (3.5-5.0); Albumin Globulin Ratio 1.1 (1.0-2.8); Alkaline Phosphatase 79 U/L (38-126); Aspartate Aminotransferase 157 IU/L (14-36); BUN Creatinine Ratio 17.4 (6-22); Bilirubin Total 1.1 mg/dL (0.2-1.3); Blood Urea Nitrogen 12 mg/dL (7-17); Calcium 8.1 mg/dL (8.4-10.2); Carbon Dioxide 28 mmol/L (22-32); Chloride 104 mmol/L (98-107); Estimated Glomerular Filt Rate > 60.0 mL/min (>60); Globulin 3.1 g/dL (1.7-4.1); Glucose 168 mg/dL (70-100); HEMOLYSIS < 15 (0-50); Potassium 4.5 mmol/L (3.4-5.1); Sodium 136 mmol/L (137-145); Total Protein 6.5 g/dL (6.3-8.2)
[2021-04-17 07:39] VITALS: O2SAT 93
[2021-04-17 08:15] VITALS: BP 109/66; PULSE 66; RESP 16; TEMP 36.1; O2SAT 95
[2021-04-17] MEDS: SODIUM CHLORIDE 0.9% FLUSH 10 ML IV (09:22)
--- NOTE | 2021-04-17 09:32 | PM.PNPO.1 ---
Subjective Subjective Date Patient Seen: 04/17/21 Time Patient Seen: 09:32 Interval history: One episode of emesis overnight. Abdominal pain is controlled. Exam Vital Signs (past 8 hours): - 04/17/21 04:18 04/17/21 07:39 Temperature 97.8 F Pulse Rate 63 Respiratory Rate 18 Blood Pressure 110/64 Pulse Oximetry 93 93 Oxygen Delivery Method Room Air Oxygen Flow Rate 0 Narrative Exam Narrative: Gen-Adult female alert and oreinted Abdomen-Soft appropriately tender to palpation. JUDY drain sero sanginous no bile. Objective Labs Result Diagrams: 04/17/21 05:50 04/17/21 05:50 Labs: Laboratory Results - last 24 hr 04/17/21 04/17/21 05:50 05:50 WBC 12.8 H RBC 3.77 L Hgb 10.8 L Hct 32.1 L MCV 85.2 MCH 28.6 MCHC 33.5 RDW 14.0 Plt Count 209 Neut % (Auto) 94.3 H Lymph % (Auto) 3.1 L [place] % (Auto) 2.5 L Eos % (Auto) 0.0 L Baso % (Auto) 0.1 Neut # (Auto) 75578 H Lymph # (Auto) 400 L [place] # (Auto) 300 Eos # (Auto) 0 Baso # (Auto) 0 Sodium 136 L Potassium 4.5 Chloride 104 Carbon Dioxide 28 BUN 12 Creatinine 0.69 Estimated GFR > 60.0 BUN/Creatinine Ratio 17.4 Glucose 168 H Calcium 8.1 L Total Bilirubin 1.1 AST 157 H ALT 238 H Alkaline Phosphatase 79 Total Protein 6.5 Albumin 3.4 L Globulin 3.1 Albumin/Globulin Ratio 1.1 PFSH Social History household members: spouse and children Smoking Status: Never smoker alcohol intake: current Assessment & Plan Post-op Postoperative Procedures: Procedures Operation Date: 04/16/21 16:00 Actual Procedure Side Surgeon p Laparoscopic Cholecystectomy Not Applicable Lester Penny MD Postoperative status narrative: 61F POD 1 sp difficult laparoscopic cholecystectomy for acute cholecystitis. -Diet as tolerated -If pain adequately controlled and tolerant of diet may discharge home with drain -Follow up 04/19 in surgical clinic for drain removal Quality VTE Deep Vein Thrombosis/Pulmonary Embolism Present on Admission: No
[2021-04-17 12:00] VITALS: BP 118/73; PULSE 77; RESP 16; TEMP 36.4; O2SAT 94
[2021-04-17] MEDS: OXYCODONE IR 5 MG TABLET PO (12:38)
[2021-04-17] MEDS: ACETAMINOPHEN 325 MG TABLET 650 MG PO (14:10)
--- NOTE | 2021-04-17 15:29 | PC.NURSE ---
Pt discharged home, able to eat breakfast and lunch without emesis. Tolerated PO meds. Scripts for Oxycodone and antinausea medication sent to pharmacy. IV discontinued. Reviewed discharge instructions such as safety with opiod use, drain care, instructed patient to call surgeon office to have drain removed on 04/[address]. Instructed on activity restrictions, dressing care. All belongings went with patient. Pt wheeled to car by wheelchair.
== END 2021-04-17 15:29 | disposition home or self-care (01) ==
LOC: ED 16:37 → AC 04-16 07:18
PROVIDERS: Emergency Medicine; Surgery; Admitting Provider Surgery; Emergency Provider Student in an Organized Health Care Education/Training Program; Referring Provider Student in an Organized Health Care Education/Training Program; Visit Provider Surgery
PROC: 0FT44ZZ Resection of Gallbladder, Percutaneous Endoscopic Approach (ICD-10-PCS; CPT 47562; principal; 2021-04-16 16:00)
DX: K80.12 Calculus of gallbladder with acute and chronic cholecystitis without obstruction (principal); Z20.822 Contact with and (suspected) exposure to COVID-19
CPT/HCPCS: 47562; 36415; 71046; 76705; 80053; 81003; 81015; 82550; 83690; 84484; 85025; 87635; 93005; 94760; 96361; 96365; 96375; 96376; 99218; 99284; C9803; G0378; J1100; J1170; J1885; J2270; J2405; J2543; J2704; J3010

== ENCOUNTER 2022-12-17 08:42 | Day surgery (SDC) | payer OTHER, SELFPAY ==
[2021-05-07 09:06] VITALS: BMI 28.6
[2022-12-17 09:02] VITALS: BP 134/89; PULSE 86; RESP 19; TEMP 36.2; O2SAT 96; BMI 28.1
[2022-12-17] MEDS: LACTATED RINGERS 1,000 ML 200 ML IV (09:09)
--- NOTE | 2022-12-17 10:06 | PM.HP.1 ---
History of Present Illness History of Present Illness Date Patient Seen: 12/17/22 Time Patient Seen: 10:06 Chief complaint: Colonoscopy Narrative: The patient presents for colorectal screening. They have never had any previous examination for such. No personal or family history of colon cancer. On further history denies any recent gastrointestinal symptoms. No nausea, vomiting, abdominal pain, loss of appetite, unexplained weight loss, change in bowel habits, or blood per rectum. COUNTS INCLUDE 234 BEDS AT THE [facility] Medical History (Updated 11/25/22 @ 11:53 by Lester Penny MD) cystic hygroma Surgical History (Updated 11/14/22 @ 10:07 by Nena Demarco MA) H/O removal of neck cyst Family History (Updated 11/14/22 @ 10:09 by Nena Demarco MA) Sister Hypertension Diabetes mellitus Stroke Mother Gallstones Lung cancer Brother Lung cancer Social History marital status: household members: spouse and children lives independently: Yes occupational status: employed Smoking Status: Never smoker alcohol intake: current substance use type: does not use Meds Home Medications and Allergies Allergies Allergy/AdvReac Type Severity Reaction Status Date / Time pistachio nut Allergy Hives Verified 12/17/22 09:01 Exam Vital Signs (past 8 hours): - 12/17/22 09:02 Temperature 97.1 F L Pulse Rate 86 Respiratory Rate 19 Blood Pressure 134/89 Pulse Oximetry 96 Oxygen Delivery Method Room Air Oxygen Delivery Method Room Air Narrative Exam Narrative: General adult woman alert oriented no acute distress Assessment & Plan Assessment & Plan narrative: The patient requires colorectal screening and colonoscopy is recommended. Technical details were discussed. Risks, benefits, alternatives explained. Risks including but not limited to myocardial infarction, aspiration, bleeding, pain, missed lesion, incomplete examination, need for further radiographic studies, colonic perforation, and need for major abdominal surgery were discussed. All questions were answered to their satisfaction, and they are in agreement with this plan.
[2022-12-17 10:28] VITALS: BP 89/58; PULSE 56; RESP 14; TEMP 36.1; O2SAT 95
[2022-12-17 10:33] VITALS: BP 98/64; PULSE 58; RESP 11; O2SAT 95
--- NOTE | 2022-12-17 10:36 | PM.OP.COLON ---
Operative Date/Time/Diagnoses Date of procedure: 12/17/22 Time of procedure: 10:36 Pre-op diagnosis: Colorectal screening Post-op diagnosis: same Procedure & Clinicians Study performed: Colonoscopy Same procedure as scheduled: Yes Indications: Colorectal screening Surgeon: Lester Penny Procedure Notes Procedure in detail: The history and physical was performed/updated and the patient is ASA class is 2. The procedure was discussed in detail with the patient. Potential risks complications including infection, bleeding, missed diagnosis, perforation, need for surgery, and were explained. Their questions were answered and informed consent was obtained. Patient was brought to the procedure room and placed standard monitoring equipment. The patient's vital signs were monitored continuously throughout the entire procedure. Prior to starting time-out was performed. The patient was placed in the left lateral recumbent position. Procedural sedation was administered by anesthesia. Examination began with a thorough inspection of the perianal area there was no evidence of fissures, fistulae, external hemorrhoids or cutaneous malignancy. The colonoscopy scope was then placed into the anal canal and was advanced to the cecum, which was identified by the ileocecal valve, the appendiceal orifice and the confluence of the taenia. The scope was then slowly withdrawn examining colon thoroughly in all directions, irrigating it of any residual stool. Normal healthy colon. No masses polyps or inflammation was identified. The patient tolerated the procedure well. They will be discharged once criteria are met. The prep was of good/excellent quality. The withdrawl time was 6 minutes. Specimen(s): none sent Impression: Normal colonoscopy Post-procedure Recommendations: Colonoscopy in 10 years and High fiber diet Disposition: same day surgery
[2022-12-17 10:39] VITALS: BP 109/73; PULSE 75; RESP 16; O2SAT 96
[2022-12-17 10:44] VITALS: BP 102/73; PULSE 66; RESP 14; TEMP 36.1; O2SAT 98
== END 2022-12-17 11:00 | disposition home or self-care (01) ==
PROVIDERS: PCP Family Medicine; Referring Provider Surgery; Visit Provider Surgery
PROC: 0DJD8ZZ Inspection of Lower Intestinal Tract, Via Natural or Artificial Opening Endoscopic (ICD-10-PCS; CPT 45378; principal; 2022-12-17 09:45)
DX: Z12.11 Encounter for screening for malignant neoplasm of colon (principal)
CPT/HCPCS: G0121; J2704; J3010

== ENCOUNTER → 2024-04-06 12:36 | Outpatient (CLI) | payer OTHER, SELFPAY ==
[2021-05-07 09:06] VITALS: BMI 28.6
--- NOTE | 2024-04-06 12:38 | DI.US.S_ITS ---
PROCEDURE: US THYROID INDICATIONS: NEW ONSET ENLARGED THYROID W/TENDERNESS TECHNIQUE: Real-time scanning was performed of the thyroid gland, with image documentation. COMPARISON: None. FINDINGS: Thyroid: Right lobe measures 1.6 x 2.1 x 6.4 cm. Left lobe measures 1.8 x 2.1 x 5.9 cm. Isthmus is 1.1 cm thick. Echotexture is heterogeneous. Nodule number: 1 Location: Left thyroid lobe, middle 3rd Size: 1.6 x 1.6 x 2.4 cm. Composition: Predominantly solid Echogenicity: Slightly hyperechoic Shape: Wider than tall Margins: Smoothly marginated Echogenic foci: Microcalcification with posterior shadowing Total points: 4.0 ACR TI-RADS category: Category 4, moderately suspicious. IMPRESSION: TI-RADS category 4, moderately suspicious, given size of greater than 1.5 cm follow-up by fine needle aspiration biopsy under ultrasound guidance is recommended. ACR definitions and recommendations: TI-RADS 1 (benign): 0 points. FNA not needed. TI-RADS 2 (not suspicious): 2 points. FNA not needed. TI-RADS 3 (mildly suspicious): 3 points. * FNA if 2.5 cm or larger, follow up if 1.5 cm or larger (at 1, 3, and 5 years). TI-RADS 4 (moderately suspicious): 4-6 points. * FNA if 1.5 cm or larger, follow up if 1 cm or larger (at 1, 2, 3, and 5 years). TI-RADS 5 (highly suspicious): 7 points or more. * FNA if 1 cm or larger, follow up if 0.5 cm or larger (every year for 5 years). Dictated by: Vince Cota M.D. on 04/08/2024 at 9:38 Approved by: Vince Cota M.D. on 04/08/2024 at 9:43
== END ==
PROVIDERS: PCP Family Medicine; Referring Provider Nurse Practitioner Family; Visit Provider Nurse Practitioner Family
DX: E04.1 Nontoxic single thyroid nodule (principal)
CPT/HCPCS: 76536

== ENCOUNTER → 2024-08-06 14:42 | Outpatient (CLI) | payer OTHER, SELFPAY ==
[2021-05-07 09:06] VITALS: BMI 28.6
--- NOTE | 2024-08-06 | PATH_ITS ---
Note [facility] Accession Number: [id number] TESTS RESULT FLAG UNITS REF RANGE LAB Clinician Provided Cytology Information No. of containers..02 Previously Prepared Cytology Slide 35 Unknown Storage/container code(s) Source: LEFT THYROID NODULE DIAGNOSIS: LEFT THYROID NODULE, FINE NEEDLE ASPIRATION. INCONCLUSIVE. BETHESDA CATEGORY III. FOLLICULAR LESION OF UNDETERMINED SIGNIFICANCE. SPECIMEN CONSISTS OF ABUNDANT FOLLICULAR CELLS WITH PROMINENT HURTHLE CELL CHANGES. THE DIFFERENTIAL DIAGNOSIS INCLUDES CELLULAR ADENOMATOID NODULE AND FOLLICULAR NEOPLASM. IN ADDITION, THE PRESENCE OF SMALL, MATURE LYMPHOCYTES RAISES THE POSSIBILITY OF BACKGROUND LYMPHOCYTIC THYROIDITIS. MOLECULAR TESTING WILL BE PERFORMED ON THE SUBMITTED RNA VIAL FOR FURTHER EVALUATION. Pathologist ICD10: R89.6, E04.1 Signed out by: Parish Najera MD, Pathologist NPI- [id number] Performed by: Freddy Flores, Autocad Electrical Designer ([facility]) Gross description: 30 CC, PINK, CLEAR RECEIVED 6 ALCOHOL FIXED SLIDES IN 2 GREEN CAP COFFINS. RECEIVED 6 FIXED STAINED SLIDES IN 2 COFFINS. RECEIVED 1RNA VIAL. : 08-26-24 KARLY CORONA 08/09/2024 1157 [facility] FLAG LEGEND: L-Low Normal,H-High Normal,LL-Alert Low,HH-Alert High <-Panic Low,>-Panic High,A-Abnormal,AA-Critical Abnormal Performed at: 01 =Z [facility] [place] [address], [place] [address] Jad Forrester MD, Performed at: 01 [facility] [address], [place], [place] [id number] MD Jad Forrester MD Phone: [phone]
--- NOTE | 2024-08-06 14:43 | DI.US.S_ITS ---
PROCEDURE: US FINE NEEDLE ASPIRATION INDICATIONS: THYROID NODULE TECHNIQUE: The indications, alternatives, benefits, risks, and complications of the procedure were explained to the patient. Written informed consent was obtained and placed in the chart. The thyroid region was examined sonographically and a site was chosen for ultrasound guided percutaneous sampling. The skin was prepared and draped in the usual fashion, and anesthetized with 1% lidocaine infiltrated from the skin down to the thyroid gland. Multiple passes were then performed, with contents emptied into an appropriate pathology specimen container. A bandage was applied to the area of access at completion of the study. COMPARISON: None. FINDINGS: Location(s) of lesion(s) sampled: Mid left thyroid lobe [place]: 25 gauge hypodermic needles. Number of passes: 6 Medications: 1% lidocaine for local anaesthesia. Complications: None. IMPRESSION: Successful ultrasound-guided thyroid nodule fine needle aspiration, with cytology results pending. Please see chart below for management recommendations based on cytology results. [facility] ReportingRecommendationsNon-diagnostic* Repeat US-guided FNA, with on-site cytology evaluation if possible. * Repeated non-diagnostic nodules without high suspicion US features: close observation vs surgical consult. * Consider surgery if nodule has high suspicion US features, grows >20% in 2 dimensions on followup, or patient has clinical risk factors for malignancy. Benign* If nodule has high suspicion US features: repeat US and FNA within 12 months. * If nodule has low to intermediate suspicion US features: repeat US at 12-24 months. If nodule grows (20% increase in at least 2 dimensions, with minimal increase of 2 mm or >50% change in volume), or development of new suspicious US features, then repeat FNA or continue followup. * If nodule has very low suspicion US features: followup US at >24 months. Atypia of undetermined significance, follicular lesion of undetermined significanceRepeat FNA, molecular testing, followup US, or surgical consult.Follicular neoplasm, suspicious for follicular neoplasmSurgical consult; also consider molecular testing. Suspicious for malignancySurgical consult.MalignantSurgical consult. Dictated by: Shane Peterson M.D. on 08/06/2024 at 16:33 Approved by: Shane Peterson M.D. on 08/06/2024 at 16:34
== END ==
LOC: US 14:42
PROVIDERS: PCP Family Medicine; Referring Provider Student in an Organized Health Care Education/Training Program; Visit Provider Student in an Organized Health Care Education/Training Program
DX: D18.1 Lymphangioma, any site (principal); E04.1 Nontoxic single thyroid nodule
CPT/HCPCS: 10005